=== PATIENT | male | born 1965 | race Caucasian/White ===

== ENCOUNTER 2019-04-25 10:11 | Emergency (ER) | payer OTHER ==
[2019-04-25 10:59] LABS: Urine Appearance Clear; Urine Bilirubin Negative (Negative); Urine Blood Negative (Negative); Urine Color Straw; Urine Glucose Negative (Negative); Urine Ketones Negative (Negative); Urine Nitrite Negative (Negative); Urine Protein Negative (Negative); Urine Specific Gravity 1.005 (1.010-1.030); Urine Urobilinogen Negative (Negative)
[2019-04-25 11:41] LABS: Urine Benzodiazepine Screen None Detected (None Detect); Urine Opiates Screen None Detected (None Detect)
[2019-04-25] MEDS ORDERED: NS 0.9% 1000 ML** 1,000 ML IV ONE (12:14)
[2019-04-25 12:31] VITALS: BP 117/88
[2019-04-25 12:44] LABS: ABS Basophils 0.1 10^3/ul (0-0.2); ABS Eosinophils 0.1 10^3/ul (0-0.6); ABS Lymphocytes 2.4 10^3/ul (1.0-4.8); ABS Monocytes 0.5 10^3/ul (0-0.8); ABS Neutrophils 3.2 10^3/ul (1.5-7.7); Eosinophil % 1.5 %; Hematocrit 44 % (42-52); Hemoglobin 15.2 g/dL (14.0-18.0); Mean Corpuscular HGB Conc 35 g/dL (31-36); Mean Corpuscular Hemoglobin 31 pg (27-31); Mean Corpuscular Volume 89 fL (80-94); Mean Platelet Volume 6.6 fL (7.4-10.4); Platelet Count 227 10^3/uL (150-450); Red Blood Count 4.93 10^6 /uL (4.18-5.48); Red Cell Distribution Width 13 % (10-15); White Blood Count 6.2 10^3/uL (3.5-10.8)
[2019-04-25 13:03] LABS: Albumin 4.5 g/dL (3.2-5.2); BUN/Creatinine Ratio 14.5 (8-20); Calcium 9.5 mg/dL (8.6-10.3); EGFR African American 83.8 (>60); EGFR Non-African American 69.2 (>60); Globulin 2.3 g/dL (2-4); Magnesium 2.3 mg/dL (1.9-2.7); Potassium 3.9 mmol/L (3.5-5.0); Total Bilirubin 0.3 mg/dL (0.2-1.0); Total Protein 6.8 g/dL (6.4-8.9)
--- NOTE | 2019-04-25 13:20 | ED ---
Complex/Multi-Sys Presentation - HPI Summary HPI Summary: This pt is a 54 y/o male presenting to [facility] c/o tingling in fingertips and tips of toes bilaterally since 7 days ago. Pt reports he has been at [facility] for 10 days now for alcohol and cocaine abuse. Pt states he will be discharged from treatment on 04/30/19. He notes he found out he had diabetes a few months ago, for which he takes metformin and glimepiride. Pt notes for the past 7 days he has been having tingling in his fingertips and tips of toes bilaterally. He describes tingling as constant "annoying" but not painful. Pt reports he has had sleep disturbance secondary to tingling, averaging in 4 hours of sleep a night. Today he woke up at 04:30 because he was unable to sleep due to tingling up to his ankles bilaterally. Pt called his and told him patient may have diabetic neuropathy. Denies visual changes, nausea, vomiting. Denies difficulty with bowels. Denies any wounds. Pt states he was taken off Ambien and Klonopin since admission to [facility] on 06/26. he has taken Gabapentin in the past for lower back pain and psych. Pt's medications reviewed this visit. - History Of Current Complaint Chief Complaint: EDNeurologicalDeficit Time Seen by Provider: 04/25/19 12:14 Hx Obtained From: Patient Onset/Duration: Lasting Days, Still Present Timing: Days Severity Currently: Moderate Location: Negative Aggravating Factor(s): nothing Alleviating Factor(s): nothing Associated Signs And Symptoms: Positive: Other - POSITIVE: tingling in fingertips and tips of toes bilaterally. NEGATIVE: difficulty with bowels, wounds, visual changes.. Negative: Nausea, Vomiting, Fever - Allergies/Home Medications Allergies/Adverse Reactions: Allergies Allergy/AdvReac Type Severity Reaction Status Date / Time No Known Allergies Allergy Verified 04/25/19 10:27 PMH/Surg Hx/FS Hx/Imm Hx Previously Healthy: Yes Endocrine/Hematology History: Reports: Hx Diabetes Cardiovascular History: Denies: Hx Hypertension Psychiatric History: Reports: Hx Depression, Hx Bipolar Disorder, Hx Substance Abuse - alcohol and cocaine Infectious Disease History: No Infectious Disease History: Denies: Traveled Outside the [place] in Last 30 Days - Family History Known Family History: Negative: Cardiac Disease, Hypertension - Social History Lives: With Family - current at rehab facility Alcohol Use: None Alcohol Amount: former alcoholic Hx Substance Use: Yes - former cocaine user Substance Use Type: Reports: Prescribed Substance Use Comment - Amount & Last Used: Klonopin and Ambien d/c'd 04/15/19 Smoking Status (MU): Never Smoked Tobacco Review of Systems Negative: Fever Negative: Other - NEGATIVE: visual changes Negative: Vomiting, Nausea, Other - NEGATIVE: difficulty with bowels Negative: Other - NEGATIVE: wounds Positive: Paresthesia All Other Systems Reviewed And Are Negative: Yes Physical Exam - Summary Physical Exam Summary: Vital Signs Reviewed: Yes A+Ox3, no distress Eyes: Conjunctiva Clear, CLAYTON. EOM intact and full ENT: Hearing grossly normal TM x 2 clear, mmoist, uvula midline, no exudate, no erythema Neck: Positive: Supple Respiratory: Positive: No respiratory distress, No accessory muscle use + CTA throughout no w/r Cardiovascular: RRR nl s1, s2 no m/r CBT <2 sec all digits, 2+ pT. DP, radial b/l abd soft + BS nt/nd no guarding, no distension Musculoskeletal Exam: JOHNSON x 4 without difficulty Strength Intact, ROM Intact Neurological: Positive: Alert, full AROM upper and lower extremities against resistance + gross sensation b/l upper and lower ext reports decrease sentations dorsum b/l feet Psychological: Positive: Normal Response To Family Skin: Positive: no rash, no ecchymosis - no wounds lesions LE Vital Signs On Initial Exam: Initial Vitals Temp Pulse Resp BP Pulse Ox 97.2 F 54 20 118/72 97 04/25/19 10:22 04/25/19 10:22 04/25/19 10:22 04/25/19 10:22 04/25/19 10:22 Diagnostics - Vital Signs Vital Signs Temp Pulse Resp BP Pulse Ox 04/25/19 13:00 53 97 04/25/19 12:08 50 117/88 95 04/25/19 12:01 47 93 04/25/19 11:23 52 95 04/25/19 10:22 97.2 F 54 20 118/72 97 - Laboratory Lab Results: Lab Results 04/25/19 04/25/19 04/25/19 Range/Units 10:30 10:30 12:36 WBC 6.2 (3.5-10.8) 10^3/uL RBC 4.93 (4.18-5.48) 10^6 /uL Hgb 15.2 (14.0-18.0) g/dL Hct 44 (42-52) % MCV 89 (80-94) fL MCH 31 (27-31) pg MCHC 35 (31-36) g/dL RDW 13 (10-15) % Plt Count 227 (150-450) 10^3/uL MPV 6.6 L (7.4-10.4) fL Neut % (Auto) 51.3 % Lymph % (Auto) 39.0 % Johnston % (Auto) 7.4 % Eos % (Auto) 1.5 % Baso % (Auto) 0.8 % Absolute Neuts (auto) 3.2 (1.5-7.7) 10^3/ul Absolute Lymphs (auto) 2.4 (1.0-4.8) 10^3/ul Absolute Monos (auto) 0.5 (0-0.8) 10^3/ul Absolute Eos (auto) 0.1 (0-0.6) 10^3/ul Absolute Basos (auto) 0.1 (0-0.2) 10^3/ul Absolute Nucleated RBC 0.0 10^3/ul Nucleated RBC % 0.0 Sodium (135-145) mmol/L Potassium (3.5-5.0) mmol/L Chloride (101-111) mmol/L Carbon Dioxide (22-32) mmol/L Anion Gap (2-11) mmol/L BUN (6-24) mg/dL Creatinine (0.67-1.17) mg/dL Est GFR ( Amer) (>60) Est GFR (Non-Af Amer) (>60) BUN/Creatinine Ratio (8-20) Glucose (70-100) mg/dL Calcium (8.6-10.3) mg/dL Magnesium (1.9-2.7) mg/dL Total Bilirubin (0.2-1.0) mg/dL AST (13-39) U/L ALT (7-52) U/L Alkaline Phosphatase (34-104) U/L Total Protein (6.4-8.9) g/dL Albumin (3.2-5.2) g/dL Globulin (2-4) g/dL Albumin/Globulin Ratio (1-3) TSH Urine Color Straw Urine Appearance Clear Urine pH 8.0 (5-9) Ur Specific [place] 1.005 L (1.010-1.030) Urine Protein Negative (Negative) Urine Ketones Negative (Negative) Urine Blood Negative (Negative) Urine Nitrate Negative (Negative) Urine Bilirubin Negative (Negative) Urine Urobilinogen Negative (Negative) Ur Leukocyte Esterase Negative (Negative) Urine Glucose Negative (Negative) Urine Opiates Screen None detected (None Detect) Ur Barbiturates Screen Presumptive positive A (None Detect) Ur Phencyclidine Scrn None detected (None Detect) Ur Amphetamines Screen None detected (None Detect) U Benzodiazepines Scrn None detected (None Detect) Urine Cocaine Screen None detected (None Detect) U Cannabinoids Screen None detected (None Detect) 04/25/19 Range/Units 12:36 WBC (3.5-10.8) 10^3/uL RBC (4.18-5.48) 10^6 /uL Hgb (14.0-18.0) g/dL Hct (42-52) % MCV (80-94) fL MCH (27-31) pg MCHC (31-36) g/dL RDW (10-15) % Plt Count (150-450) 10^3/uL MPV (7.4-10.4) fL Neut % (Auto) % Lymph % (Auto) % Johnston % (Auto) % Eos % (Auto) % Baso % (Auto) % Absolute Neuts (auto) (1.5-7.7) 10^3/ul Absolute Lymphs (auto) (1.0-4.8) 10^3/ul Absolute Monos (auto) (0-0.8) 10^3/ul Absolute Eos (auto) (0-0.6) 10^3/ul Absolute Basos (auto) (0-0.2) 10^3/ul Absolute Nucleated RBC 10^3/ul Nucleated RBC % Sodium 140 (135-145) mmol/L Potassium 3.9 (3.5-5.0) mmol/L Chloride 107 (101-111) mmol/L Carbon Dioxide 27 (22-32) mmol/L Anion Gap 6 (2-11) mmol/L BUN 16 (6-24) mg/dL Creatinine 1.10 (0.67-1.17) mg/dL Est GFR ( Amer) 83.8 (>60) Est GFR (Non-Af Amer) 69.2 (>60) BUN/Creatinine Ratio 14.5 (8-20) Glucose 90 (70-100) mg/dL Calcium 9.5 (8.6-10.3) mg/dL Magnesium 2.3 (1.9-2.7) mg/dL Total Bilirubin 0.30 (0.2-1.0) mg/dL AST 15 (13-39) U/L ALT 20 (7-52) U/L Alkaline Phosphatase 55 (34-104) U/L Total Protein 6.8 (6.4-8.9) g/dL Albumin 4.5 (3.2-5.2) g/dL Globulin 2.3 (2-4) g/dL Albumin/Globulin Ratio 2.0 (1-3) TSH Pending Urine Color Urine Appearance Urine pH (5-9) Ur Specific [place] (1.010-1.030) Urine Protein (Negative) Urine Ketones (Negative) Urine Blood (Negative) Urine Nitrate (Negative) Urine Bilirubin (Negative) Urine Urobilinogen (Negative) Ur Leukocyte Esterase (Negative) Urine Glucose (Negative) Urine Opiates Screen (None Detect) Ur Barbiturates Screen (None Detect) Ur Phencyclidine Scrn (None Detect) Ur Amphetamines Screen (None Detect) U Benzodiazepines Scrn (None Detect) Urine Cocaine Screen (None Detect) U Cannabinoids Screen (None Detect) Result Diagrams: 04/25/19 12:36 04/25/19 12:36 Lab Statement: Any lab studies that have been ordered have been reviewed, and results considered in the medical decision making process. Complex Multi-Symp Course/Dx Course Of Treatment: Pt 54 yo male with h/o alcohol dependence, DM, depression presents from [facility] where receiving care for alcohol detox- pt states has stopped many of his med - klonopin and ambien - states not sleeping and having paresthesias of extremities no pain. VSS. exam non concerning. suspect component of diabetic neuropathy and possible med withdrawal. recommend gabapentin. f/u with PCP next week follow discharge from center. pt comfortable and in agreement with plan - Diagnoses Provider Diagnoses: Complaint of paresthesia Discharge - Sign-Out/Discharge Documenting (check all that apply): Patient Departure - Discharge home Patient Received Moderate/Deep Sedation with Procedure: No - Discharge Plan Condition: Stable Disposition: HOME Prescriptions: Gabapentin CAP(*) [Neurontin 100 mg CAP(*)] 200 mg PO BID #30 cap Patient Education Materials: Peripheral Neuropathy (ED), Paresthesia (ED) Referrals: No Primary Care Phys,NOPCP [Primary Care Provider] - Additional Instructions: - Contact your doctor to schedule a follow-up appointment when you return home next or Sunday - Take Gabapentin 2 times a day as prescribed - your doctor may increase this dosing after you have been on it for 1 week - Stay well hydrated - drink plenty of non-caffinated beverages - Billing Disposition and Condition Condition: STABLE Disposition: Home - Attestation Statements Document Initiated by Carmen: Yes Documenting Scribe: Chata Carcamo Provider For Whom Carmen is Documenting (Include Credential): Patti Umanzor MD Scribe Attestation: Chata Russell, scribed for Patti Umanzor MD on 04/26/19 at 0412. Scribe Documentation Reviewed: Yes Provider Attestation: The documentation as recorded by the Chata aldana accurately reflects the service I personally performed and the decisions made by , Patti Umanzor MD Status of Scribe Document: Viewed
[2019-04-25 13:35] LABS: TSH (Thyroid Stimulating Horm) 3.44 mcIU/mL (0.34-5.60)
== END 2019-04-25 13:46 | disposition home or self-care (01) ==
LOC: ED 10:11
DX: R20.2 Paresthesia of skin (principal); E11.9 Type 2 diabetes mellitus without complications; F31.9 Bipolar disorder, unspecified; Z79.84 Long term (current) use of oral hypoglycemic drugs; Z79.899 Other long term (current) drug therapy
CPT/HCPCS: 36415; 80053; 80307; 81003; 83735; 84443; 85025; 96360; 99282